=== PATIENT | female | born 1955 | race Caucasian/White ===

== ENCOUNTER → 2023-07-18 16:33 | Outpatient (REF) | payer MEDICARE, OTHER, SELFPAY | LOC: RAD 16:33 | PROVIDERS: ATTENDING PHYSICIAN Nurse Practitioner Family; FAMILY PHYSICIAN Internal Medicine; OTHER PHYSICIAN Internal Medicine Geriatric Medicine; REFERRING PHYSICIAN Obstetrics & Gynecology Gynecology | DX: N95.0 Postmenopausal bleeding (principal); D59.12 Cold autoimmune hemolytic anemia | CPT/HCPCS: 76830; 76856 ==

== ENCOUNTER → 2023-07-27 08:59 | Outpatient (REF) | payer MEDICARE, OTHER, SELFPAY | LOC: WDC 08:59 | PROVIDERS: ATTENDING PHYSICIAN Physician Assistant Medical; FAMILY PHYSICIAN Internal Medicine; REFERRING PHYSICIAN Internal Medicine Hematology & Oncology | DX: Z12.31 Encounter for screening mammogram for malignant neoplasm of breast (principal) | CPT/HCPCS: 77063; 77067 ==

== ENCOUNTER → 2024-01-23 06:54 | Outpatient (REF) | payer MEDICARE, OTHER, SELFPAY | LOC: RAD 06:54 | PROVIDERS: ATTENDING PHYSICIAN Internal Medicine; OTHER PHYSICIAN General Practice | DX: R22.9 Localized swelling, mass and lump, unspecified (principal) | CPT/HCPCS: 76536 ==

== ENCOUNTER → 2024-04-24 15:25 | Outpatient (REF) | payer MEDICARE, OTHER, SELFPAY | LOC: HWRAD 15:25 | PROVIDERS: ATTENDING PHYSICIAN Internal Medicine | DX: M25.512 Pain in left shoulder (principal) | CPT/HCPCS: 73030 ==

== ENCOUNTER → 2024-05-20 08:46 | Outpatient (REF) | payer MEDICARE, OTHER, SELFPAY | LOC: RAD 08:46 | PROVIDERS: ATTENDING PHYSICIAN Internal Medicine Geriatric Medicine; FAMILY PHYSICIAN Internal Medicine; OTHER PHYSICIAN Student in an Organized Health Care Education/Training Program; REFERRING PHYSICIAN Internal Medicine Hematology & Oncology | DX: N95.0 Postmenopausal bleeding (principal) | CPT/HCPCS: 76830; 76856 ==

== ENCOUNTER → 2024-06-09 08:47 | Outpatient (REF) | payer MEDICARE, OTHER, SELFPAY | LOC: RAD 08:47 | PROVIDERS: ATTENDING PHYSICIAN Internal Medicine | DX: Z87.39 Personal history of other diseases of the musculoskeletal system and connective tissue (principal); M85.89 Other specified disorders of bone density and structure, multiple sites | CPT/HCPCS: 77080 ==

== ENCOUNTER → 2024-07-31 08:15 | Outpatient (REF) | payer MEDICARE, OTHER, SELFPAY | LOC: WDC 08:15 | PROVIDERS: ATTENDING PHYSICIAN Internal Medicine | DX: Z12.31 Encounter for screening mammogram for malignant neoplasm of breast (principal) | CPT/HCPCS: 77063; 77067 ==

== ENCOUNTER 2024-11-05 08:13 | Emergency (ER) | payer MEDICARE, OTHER, SELFPAY ==
[2024-11-05 08:17] VITALS: BP 103/48
[2024-11-05 08:40] VITALS: BMI 24.1
--- NOTE | 2024-11-05 08:40 | ED.GENMED ---
History of Present Illness
General
Chief Complaint: Abdominal Pain
Source: patient
Exam Limitations: none
Time Seen by Provider: 11/05/24 08:21
History of Present Illness
History of Present Illness:
69-year-old female presents complaining of onset of mid abdominal pain starting yesterday shortly before eating dinner. The pain has been fairly consistent since then. There has not been any nausea or vomiting. She has been moving her bowels and
without any urinary symptoms. No fevers. No prior surgical history. The pain is sharp in nature does not radiate to the back. She also complains of right hand pain after fall she sustained several days ago. She takes a statin regularly she is
healthy otherwise without any abdominal surgical history.
Phy Exam
Physical Exam
Physical Exam:
General: Well-appearing female no acute respiratory distress
HEENT normocephalic atraumatic
Heart: Regular rate and rhythm
Lungs: Clear no wheeze
Abdomen is soft tender to the mid abdomen as well as the right upper quadrant and lower abdomen bilaterally. Nondistended. No costovertebral angle tenderness
Musculoskeletal exam: The right hand is tender over the MCP joints without deformity or swelling
Course
Orders/Labs/Results
Orders:
Orders
11/05/24 08:38
Ketorolac [Toradol] 15 mg IV NOW STA
CR Hand - Right Min 3 Views Urgent
Comment:
Reason For Exam: fall, right hand pain
11/05/24 08:39
CT Abd/pelvis W Iv Cont Urgent
Comment:
Reason For Exam: lower abdominal pain
11/05/24 08:50
CBC/With Diff [Complete Blood Count/With Diff] Stat
CMP [Comprehensive Metabolic Panel] Stat
Lipase Stat
11/05/24 10:58
Urinalysis Reflex To Culture Urgent
Date Specimen was Collected: 11/05/24
Time Specimen was Collected: 08:49
Urine Microscopic Reflex Cult Urgent
Urine Culture Urgent
IHSAN Source: U
Specimen Description:
Date Specimen was Collected: 11/05/24
Time Specimen was Collected: 08:49
11/05/24 11:33
CR Shoulder, Trauma - Left Urgent
Comment:
Reason For Exam: fall
Abnormal Lab Results
11/05/24 11/05/24
08:50 10:58
Glucose 104 H mg/dl
(70-99)
Total Bilirubin 3.4 H mg/dl
(0.2-1.3)
Ur Occult Blood Reflex 2+ A
(Negative)
Leukocyte Esterase Rfl 1+ A
(Negative)
Urine RBC 3-6 A /HPF
(0-2)
Urine Bacteria (Reflex) Few A
(Negative)
Urine Albumin (Reflex) 2+ A
(Neg - Trace)
11/05/24 08:50
Vital Signs
Initial and Last Documented VS:
Initial Vital Signs
Temp Pulse Resp BP Pulse Ox
99.2 F 80 16 103/48 97
11/05/24 08:17 11/05/24 08:17 11/05/24 08:17 11/05/24 08:17 11/05/24 08:17
Last Documented Vital Signs
Temp Pulse Resp BP Pulse Ox
99.2 F 80 16 90/60 97
11/05/24 08:17 11/05/24 08:17 11/05/24 08:17 11/05/24 11:02 11/05/24 11:02
MDM/Problems Addressed
Differential Diagnosis Includes:
Patient with abdominal pain persistent since yesterday. Quite tender to the right upper as well as the lower abdomen. Mixed clinical picture consider biliary colic versus diverticulitis versus constipation. Also consider appendicitis. She also
has right hand pain after fall she sustained 2 days ago. X-rays of the right hand pending
She has a history of cold agglutinin issues and her blood in her blood does occasionally give issues when being drawn and it clots sooner than expected. Nurse made aware. Toradol ordered for pain. CT of the abdomen pending.
*Pulse Oximetry
SaO2: 97
Oxygen Mode of Delivery: Room air
Patient hypoxic: no
*Critical Care Note
Total Time (30-74mins, 75-104mins- exclusive of procedures): Not Applicable
Update Note
Update Note:
CT of the abdomen demonstrates mild diverticulitis. X-ray right hand and left shoulder were reviewed secondary to fall which were negative for acute fractures. Patient is allergic to penicillin. Will treat diverticulitis with clear liquids and
Flagyl and Cipro. Stable for discharge
ED Attending Note
-
Portions of this chart may have been created with voice recognition software.� Occasional wrong word or��sound alike� substitutions may have occurred due to the inherent limitations of voice recognition software.
Discharge Plan
Departure
Patient Disposition: Home (Routine Discharge)
Date of Disposition: 11/05/24
Time of Disposition: 12:14
Patient with high blood pressure during this ER visit?: No
Discharge Problem:
Acute diverticulitis
Instructions: Clear Liquid Diet, Diverticulitis (DC)
Prescriptions:
New
metronidazole 500 mg tablet
500 mg PO TID Qty: 30 0RF
ciprofloxacin HCl 500 mg tablet
500 mg PO BID Qty: 20 0RF
Referrals:
Soledad Escoto DO [Family Provider, Family Practice]
Activity Restrictions/Additional Instructions:
Drink plenty of clear liquids. Use Tylenol for pain. Take antibiotic as directed. Return if worse otherwise follow-up with your doctor
Interventions
Interventions:
*Risk Screen - Suicide Last Done: 11/05/24 08:40
*General Assessment Last Done: 11/05/24 08:40
*Neglect/Abuse Screening Last Done: 11/05/24 08:40
*ED- Fall Risk Assessment Last Done: 11/05/24 08:40
*ED COVID-19 Vaccine History Last Done: 11/05/24 08:40
WE-Qivatm-Emrivkmdhn Assessment Last Done: 11/05/24 08:40
Discharge Date and Time
Print Language: KENYAN
[2024-11-05] MEDS: TORADOL 15 MG IV (08:53)
[2024-11-05 09:29] LABS: ALT (SGPT) 14 U/L (0-35); AST (SGOT) 31 U/L (14-36); Albumin 4.2 g/dl (3.5-5.0); Alkaline Phosphatase 78 U/L (38-126); Blood Urea Nitrogen 16 mg/dl (7-17); Calcium 9.0 mg/dl (8.4-10.2); Carbon Dioxide 29 mmol/L (22-30); Chloride 104 mmol/L (98-107); Estimated Creatinine Clearance 64 ml/min; Glucose 104 mg/dl (70-99); Lipase 34 U/L (23-300); Potassium 4.2 mmol/L (3.5-5.1); Sodium 137 mmol/L (135-145); Total Protein 7.1 g/dl (6.3-8.2); eGFR > 60.00
[2024-11-05 11:02] VITALS: BP 90/60
[2024-11-05 11:15] LABS: Urine Character Clear (Clear)
[2024-11-05 11:36] LABS: Urine Squamous Cell >30 /LPF (Few)
[2024-11-05 12:03] VITALS: BP 99/72
[2024-11-05 12:13] LABS: Hematocrit 28.1 % (37.0-47.0); Hemoglobin 8.8 g/dL (12.0-16.0); Mean Corp Hgb Conc. 31.3 g/dL (33.0-37.0); Mean Corpuscular Volume 93.0 fL (81.0-99.0); Nucleated Red Blood Cells % 0 %; Platelet Count 287 10^3/uL (130-400); Red Cell Dist. Width 18.3 % (11.5-14.5)
== END 2024-11-05 12:47 | disposition home or self-care (01) ==
LOC: EMR 08:13
PROVIDERS: Physician Assistant; EMERGENCY PHYSICIAN Emergency Medicine; FAMILY PHYSICIAN Internal Medicine
DX: K57.32 Diverticulitis of large intestine without perforation or abscess without bleeding (principal); M79.641 Pain in right hand
CPT/HCPCS: 96374; 99284; 73030; 73130; 74177; 80053; 81003; 81015; 83690; 85025; 87086; Q9967

== ENCOUNTER 2025-01-11 07:38 | Emergency (ER) | payer MEDICARE, OTHER, SELFPAY ==
[2025-01-11] VITALS (10 sets, daily range): BP systolic 83–98; BP diastolic 37–68; BMI 24.6
--- NOTE | 2025-01-11 07:59 | ED.GENMED ---
History of Present Illness
General
Chief Complaint: Abdominal Pain
Time Seen by Provider: 01/11/25 07:55
History of Present Illness
History of Present Illness:
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 Feels comparable to past bout of diverticulitis. No fevers or chills.
Denies bowel movement changes or lower urinary tract voiding symptoms.
Review of Systems
Review of Systems
Allergies reviewed?: Yes
All Other Systems: ROS reviewed and negative except as documented in HPI and ROS
Phy Exam
Physical Exam
Physical Exam:
GEN: Well appearing, NAD, WDWN
HEENT: Oral mucosa moist, no scleral icterus
Cardiac: Regular rate and rhythm, no murmur
Lung: No respiratory distress, no tachypnea
Abdomen: Soft, focal right lower quadrant and suprapubic tenderness, no rigidity
MSK: No gross deformity or injuries
Skin: Good color, no pallor or jaundice, no rashes
Neuro: AO x3, moves all extremities freely
Psych: Calm, cooperative
Course
Orders/Labs/Results
Orders:
Orders
01/11/25 08:39
Complete Blood Count/With Diff Urgent
Comprehensive Metabolic Panel Urgent
01/11/25 08:43
CT Abd/Pel (IV only)-DH only Urgent
Comment:
Reason For Exam: lower abd pain
01/11/25 09:39
0.9% Sodium Chloride 1000 ml [Nss] 1,000 ml IV BOLUS
Ketorolac [Toradol] 15 mg IV NOW STA
01/11/25 12:40
Ketorolac [Toradol] 15 mg IV NOW STA
01/11/25 13:25
LevoFLOXacin [Levaquin] 750 mg PO NOW STA
MetroNIDAZOLE [Flagyl] 500 mg PO NOW STA
Abnormal Lab Results
01/11/25
08:39
RBC 2.19 L 10^6/uL
(4.20-5.40)
Hgb 6.6 L* g/dL
(12.0-16.0)
Hct 21.0 L %
(37.0-47.0)
MCHC 31.4 L g/dL
(33.0-37.0)
Abs Immat Gran (auto) 0.1 H 10^3/uL
(0-0.05)
Absolute Neuts (auto) 6.8 H 10^3/uL
(1.4-6.5)
Absolute Lymphs (auto) 1.0 L 10^3/uL
(1.2-3.4)
Immature Gran % 0.6 H %
(0-0.5)
Neutrophils % 80.2 H %
(42.2-75.2)
Lymphocytes % 11.5 L %
(20.5-51.1)
Sodium 133 L mmol/L
(135-145)
Creatinine 0.5 L mg/dL
(0.6-1.0)
Total Bilirubin 3.3 H mg/dl
(0.2-1.3)
01/11/25 08:39
01/11/25 08:39
Vital Signs
Initial and Last Documented VS:
Initial Vital Signs
Temp Pulse Resp BP Pulse Ox
98.1 F 80 16 92/49 98
01/11/25 07:41 01/11/25 07:41 01/11/25 07:41 01/11/25 07:41 01/11/25 07:41
Last Documented Vital Signs
Temp Pulse Resp BP Pulse Ox
98.5 F 78 18 97/68 99
01/11/25 15:37 01/11/25 15:37 01/11/25 15:37 01/11/25 15:37 01/11/25 15:37
MDM/Problems Addressed
MDM/Problems Addressed:
I had a lengthy discussion with the patient and her at the bedside regarding her acute anemia. While to the best of my knowledge her blood was handed appropriate by the lab we cannot discount the possibility the blood was not appropriately
managed. Nevertheless her hemoglobin was 7.72 weeks ago and is now potentially 6.6. Patient is adamant that she does not want to receive a blood transfusion without further consultation with her [place] abalone fisherman. I did speak with on-call
hematology at [place] who recommends transfusion at this level however the patient states that this is not enough reassurance for her. She refuses hospitalization for observation in the setting of her acute anemia. She states that she will contact
her personal abalone fisherman tomorrow for recommendations, I will also follow-up with this patient tomorrow by telephone. At this time she does not appear symptomatic of low hemoglobin and certainly appears quite stable, no significant pallor. This
may be a lab error however we will certainly need to have a plan in place for addressing her hemoglobin within the next 24 hours. Regards to her diverticulitis she is well-appearing and nonperitoneal thus is suitable for outpatient oral management
*Pulse Oximetry
SaO2: 98
Oxygen Mode of Delivery: Room air
Patient hypoxic: no
*Critical Care Note
Total Time (30-74mins, 75-104mins- exclusive of procedures): Not Applicable
ED Attending Note
-
Portions of this chart may have been created with voice recognition software.� Occasional wrong word or��sound alike� substitutions may have occurred due to the inherent limitations of voice recognition software.
Discharge Plan
Departure
Patient Disposition: Home (Routine Discharge)
Date of Disposition: 01/11/25
Time of Disposition: 12:29
Patient with high blood pressure during this ER visit?: No
Discharge Problem:
Diverticulitis
Instructions: Clear Liquid Diet, Diverticulitis (DC)
Prescriptions:
New
levofloxacin 750 mg tablet
750 mg PO DAILY 10 Days Qty: 10 0RF
metronidazole 500 mg tablet
500 mg PO TID 10 Days Qty: 30 0RF
No Action
metronidazole 500 mg tablet
500 mg PO TID Qty: 30 0RF
ciprofloxacin HCl 500 mg tablet
500 mg PO BID Qty: 20 0RF
Referrals:
Soledad Escoto DO [Family Provider, Family Practice]
Interventions
Interventions:
*Risk Screen - Suicide Last Done: 01/11/25 07:41
*General Assessment Last Done: 01/11/25 15:38
*Neglect/Abuse Screening Last Done: 01/11/25 07:41
*ED- Fall Risk Assessment Last Done: 01/11/25 08:34
*ED COVID-19 Vaccine History Last Done: 01/11/25 08:34
*ED Influenza Vaccine History Last Done: 01/11/25 08:34
*Nursing Disposition Last Done: 01/11/25 15:38
PX-Nifrmr-Gfpqkotnnk Assessment Last Done: 01/11/25 08:34
Discharge Date and Time
Discharge Date/Time: 01/11/25 15:40
Print Language: VIETNAMESE
[2025-01-11 09:09] LABS: ALT (SGPT) 12 U/L (0-35); AST (SGOT) 32 U/L (14-36); Albumin 4.0 g/dl (3.5-5.0); Alkaline Phosphatase 76 U/L (38-126); Blood Urea Nitrogen 15 mg/dl (7-17); Calcium 8.8 mg/dl (8.4-10.2); Carbon Dioxide 26 mmol/L (22-30); Chloride 102 mmol/L (98-107); Estimated Creatinine Clearance 74 ml/min; Glucose 93 mg/dl (70-99); Potassium 4.2 mmol/L (3.5-5.1); Sodium 133 mmol/L (135-145); Total Protein 7.0 g/dl (6.3-8.2); eGFR > 60.00
[2025-01-11] MEDS: TORADOL 15 MG IV ×2 (09:45→13:19)
[2025-01-11] MEDS: NSS 1000 IV (09:46)
[2025-01-11 12:35] LABS: Platelet Count 253 10^3/uL (130-400)
[2025-01-11 12:39] LABS: Nucleated Red Blood Cells % 0.02 %
[2025-01-11 12:49] LABS: Hematocrit 21.0 % (37.0-47.0); Mean Corp Hgb Conc. 31.4 g/dL (33.0-37.0); Mean Corpuscular Volume 95.9 fL (81.0-99.0)
[2025-01-11 12:52] LABS: Hemoglobin 6.6 g/dL (12.0-16.0)
[2025-01-11] MEDS: LEVAQUIN 750 MG PO (13:39)
[2025-01-11] MEDS: FLAGYL 500 MG PO (13:40)
== END 2025-01-11 15:40 | disposition home or self-care (01) ==
LOC: EMR 07:38
PROVIDERS: Physician Assistant; EMERGENCY PHYSICIAN Emergency Medicine; FAMILY PHYSICIAN Internal Medicine
DX: K57.32 Diverticulitis of large intestine without perforation or abscess without bleeding (principal); D59.12 Cold autoimmune hemolytic anemia
CPT/HCPCS: 99284; 96374; 96376; 96361; 74177; 80053; 85025; Q9967